=== PATIENT | male | born 1980 ===

== ENCOUNTER 2019-08-07 10:58 | Emergency (ER) | payer SELFPAY ==
[2019-08-07 11:10] VITALS: Wt 104.5 kg
[2019-08-07 11:28] LABS: APPEARANCE CLEAR (CLEAR); BILIRUBIN NEGATIVE (NEGATIVE); COLOR YELLOW (YELLOW); GLUCOSE NEGATIVE (NEGATIVE); KETONE NEGATIVE (NEGATIVE); NITRITE NEGATIVE (NEGATIVE); PROTEIN NEGATIVE (NEGATIVE); SPECIFIC GRAVITY 1.015 (1.005-1.020); UROBILINOGEN NORMAL (NORMAL)
[2019-08-07] MEDS ORDERED: CYCLOBENZAPRINE10 MG PO (12:53)
[2019-08-07] MEDS ORDERED: MEDROL DOSE PACK4 MG PO (12:53)
[2019-08-07] MEDS ORDERED: ULTRAM50 MG PO (12:53)
[2019-08-07 13:10] VITALS: BP 142/89
== END 2019-08-07 13:11 | disposition home or self-care (01) ==
LOC: D.ER 10:58
PROVIDERS: Family Medicine
DX: M51.26 Other intervertebral disc displacement, lumbar region (principal); M62.830 Muscle spasm of back; M54.30 Sciatica, unspecified side